=== PATIENT | female | born 1975 | race Caucasian/White ===

== ENCOUNTER 2017-03-11 06:41 | Day surgery (SDC) | payer BC ==
[2017-03-11] MEDS ORDERED: Lactated Ringers 1,000 ML IV SCH (06:45)
[2017-03-11] MEDS ORDERED: Midazolam 1 MG/ML 2 ML SDV IV ONE (08:00)
[2017-03-11] MEDS ORDERED: Lidocaine 2% 100 MG/5 ML Syringe IVPUSH ONE (08:00)
[2017-03-11] MEDS ORDERED: Propofol 200 MG/20 ML SDV IV ONE (08:00)
[2017-03-11] MEDS ORDERED: Ondansetron 4 MG/2 ML SDV IVPUSH ONE (08:00)
--- NOTE | 2017-03-11 08:37 | OR ---
DATE OF OPERATION: 03/11/2017 SURGEON: Adonis Aguilar MD PROCEDURE PERFORMED: Esophagogastroduodenoscopy with cold forceps biopsy. PREOPERATIVE DIAGNOSIS: Epigastric pain and pressure. POSTOPERATIVE DIAGNOSES: Gastritis and fundic gland hyperplasia. INDICATIONS FOR PROCEDURE: This is a 42-year-old white female, who is referred with a history of some epigastric abdominal discomfort. Workup to this point has been negative. She was offered and accepted an EGD. DESCRIPTION OF OPERATION: After an excellent IV sedation was administered, the bite-block was inserted. The flexible endoscope was passed without difficulty down the patient's esophagus into the stomach. The stomach was insufflated. The scope was passed through the pylorus to the second portion of the duodenum and slowly withdrawn. The following findings were noted. The duodenum was unremarkable. Stomach demonstrated some diffuse gastritis as well as some fundic gland hyperplasia. Multiple biopsies were taken. The GE junction measured at 40 cm and the esophagus was unremarkable. Stomach was deflated. The scope was removed. The patient tolerated the procedure well, was taken to the recovery room in good condition. /[id number] /MODL
--- NOTE | 2017-03-11 08:42 | PCM.OPNOTE ---
- General Post-Op/Procedure Note Date of Surgery/Procedure: 03/11/17 Operative Procedure(s): egd with bx Findings: gatritis and fundic gland hyperplasia Pre Op Diagnosis: epigastric pain Post-Op Diagnosis: gatritis and fundic gland hyperplasia Anesthesia Technique: DINESH Primary Surgeon: Adonis Aguilar Anesthesia Provider: Wellington Pablo Pathology: gastric bx Complications: None Condition: Good Free Text/Narrative:: see dictation
== END 2017-03-11 09:10 | disposition home or self-care (01) ==
LOC: FB.SDS 06:41
PROVIDERS: ATTEND Surgery
DX: K29.50 Unspecified chronic gastritis without bleeding (principal); K31.7 Polyp of stomach and duodenum; F32.9 Major depressive disorder, single episode, unspecified; Z88.8 Allergy status to other drugs, medicaments and biological substances; Z87.891 Personal history of nicotine dependence; Z79.899 Other long term (current) drug therapy; Z90.49 Acquired absence of other specified parts of digestive tract; Z98.51 Tubal ligation status
CPT/HCPCS: 43239; 81025; 88305; 88342; J2250; J2405; J2704; J7120